=== PATIENT | male | born 1970 | race Caucasian/White ===

== ENCOUNTER 2016-09-03 19:07 | Inpatient (IN) | payer MEDICAID ==
[~2016-09-03] VITALS: Ht 180.3 cm; Wt 107.2 kg
[2016-09-03 20:10] LABS: BASOPHIL % 0.4 % (0-2); PLATELET COUNT 225 x10^3mcL (130-400); RED CELL DISTRIBUTION WIDTH 13.5 % (11.5-14.5)
[2016-09-03 20:34] LABS: CALCIUM 9.3 mg/dL (8.5-10.1); CARBON DIOXIDE 26.6 mmol/L (21-32); CHLORIDE SERUM 105 mmol/L (98-107); CREATININE SERUM 1.1 mg/dL (0.7-1.3); GFR1 > 60 mL/min; GLUCOSE SERUM 108 mg/dL (74-106); POTASSIUM SERUM 4.1 mmol/L (3.5-5.1); SODIUM SERUM 143 mmol/L (136-145)
[2016-09-03 20:38] LABS: ALBUMIN 4.1 g/dL (3.4-5.0); ALKALINE PHOSPHATASE 68 U/L (46-116); ALT/SGPT 66 U/L (16-63); AST/SGOT 27 U/L (15-37); BILIRUBIN TOTAL 0.43 mg/dL (0.20-1.00); MAGNESIUM 2.2 mg/dL (1.8-2.4); TOTAL PROTEIN, SERUM 7.3 g/dL (6.4-8.2)
[2016-09-03] MEDS ORDERED: TRAMADOL HCL50 MG PO (22:45)
[2016-09-03 23:09] VITALS: BP 153/101
[2016-09-03 23:14] VITALS: Ht 180.3 cm; Wt 107.2 kg
[2016-09-03 23:28] LABS: T3 TOTAL 1.22 ng/mL
[2016-09-03 23:31] LABS: AMYLASE 32 U/L (25-115); HDL CHOLESTEROL 53 mg/dL (40-60); LIPASE 103 IU/L (73-393); PHOSPHOROUS 2.6 mg/dL (2.5-4.9); TRIGLYCERIDES 196 mg/dL (<150)
[2016-09-03 23:34] LABS: CHOLESTEROL 204 mg/dL (<200); CHOLESTEROL/HDL RATIO 3.8
[2016-09-03 23:43] LABS: FREE T4 1.01 ng/dL (0.76-1.46); FREE THYROXINE INDEX 2.8 ug/dL (1.4-4.5); T4(THYROXINE) 8.7 ug/dL (4.7-13.3)
[2016-09-04 00:53] LABS: UA SPECIFIC GRAVITY >=1.030 (1.005-1.035); microscopic required? YES; urine erythrocyte NEGATIVE (NEGATIVE)
[2016-09-04 01:06] LABS: AMPHETAMINE QUAL UR NONE DETECTED (NEG <=1000)
[2016-09-04 06:28] LABS: CALCIUM 8.3 mg/dL (8.5-10.1); CARBON DIOXIDE 28.5 mmol/L (21-32); CHLORIDE SERUM 107 mmol/L (98-107); GFR1 > 60 mL/min; GLUCOSE SERUM 100 mg/dL (74-106); POTASSIUM SERUM 3.9 mmol/L (3.5-5.1); SODIUM SERUM 144 mmol/L (136-145)
[2016-09-04 06:43] VITALS: BP 115/71
[2016-09-04 06:44] LABS: BASOPHIL % 0.2 % (0-2); PLATELET COUNT 198 x10^3mcL (130-400); RED CELL DISTRIBUTION WIDTH 13.7 % (11.5-14.5)
[2016-09-04 09:38] VITALS: BP 129/84
[2016-09-04 13:44] VITALS: BP 131/82
[2016-09-04 17:47] VITALS: BP 128/82
[2016-09-04 20:02] VITALS: BP 138/72
[2016-09-04 21:20] VITALS: BP 147/68
[2016-09-05 05:57] VITALS: BP 146/84
[2016-09-05 06:55] LABS: BASOPHIL % 0.2 % (0-2); PLATELET COUNT 184 x10^3mcL (130-400); RED CELL DISTRIBUTION WIDTH 13.4 % (11.5-14.5)
[2016-09-05 06:59] LABS: CALCIUM 8.4 mg/dL (8.5-10.1); CARBON DIOXIDE 28.5 mmol/L (21-32); CHLORIDE SERUM 110 mmol/L (98-107); CREATININE SERUM 0.8 mg/dL (0.7-1.3); GFR1 > 60 mL/min; GLUCOSE SERUM 110 mg/dL (74-106); MAGNESIUM 2.1 mg/dL (1.8-2.4); PHOSPHOROUS 2.5 mg/dL (2.5-4.9); POTASSIUM SERUM 4.5 mmol/L (3.5-5.1); SODIUM SERUM 144 mmol/L (136-145)
[2016-09-05 08:54] VITALS: BP 148/93
[2016-09-05] MEDS ORDERED: ROB750 PO ×2 (10:35→11:31)
[2016-09-05] MEDS ORDERED: LIPI20 PO (10:36)
[2016-09-05] MEDS ORDERED: COL100 PO (10:36)
[2016-09-05] MEDS ORDERED: ATIVAN0.5 M1 PO (10:38)
[2016-09-05] MEDS ORDERED: NOR10T PO (10:39)
[2016-09-05] MEDS ORDERED: ZESTRIL5 MG PO (10:54)
[2016-09-05 12:58] VITALS: BP 140/74
[2016-09-05 13:25] VITALS: BP 142/92
== END 2016-09-05 14:51 | disposition home or self-care (01) | DRG 812 ==
LOC: ED 19:07 → DU 22:22
PROVIDERS: Emergency Medicine; ADMIT Family Medicine
DX: T40.4X1A Poisoning by other synthetic narcotics, accidental (unintentional), initial encounter (principal); N17.0 Acute kidney failure with tubular necrosis; G92 Toxic encephalopathy; I67.4 Hypertensive encephalopathy; R56.9 Unspecified convulsions; S01.512A Laceration without foreign body of oral cavity, initial encounter; I10 Essential (primary) hypertension; E78.5 Hyperlipidemia, unspecified; M51.17 Intervertebral disc disorders with radiculopathy, lumbosacral region; G89.29 Other chronic pain; M72.2 Plantar fascial fibromatosis; F17.210 Nicotine dependence, cigarettes, uncomplicated; E66.9 Obesity, unspecified; Z68.33 Body mass index [BMI] 33.0-33.9, adult; W50.3XXA Accidental bite by another person, initial encounter; Y99.0 Civilian activity done for income or pay; Y92.511 Restaurant or cafe as the place of occurrence of the external cause
CPT/HCPCS: 80307; 83880; 84439; G0480; J2060; J2405; J7030; Q0092

== ENCOUNTER 2016-11-07 11:00 | Emergency (ER) | payer MEDICAID ==
[~2016-11-07 11:00] MED LIST: ATIVAN0.5 M1 PO; COL100 PO; LIPI20 PO; NOR10T PO; ROB750 PO; TRAMADOL HCL50 MG PO; ZESTRIL5 MG PO
[2016-11-07 11:49] LABS: BASOPHIL % 0.4 % (0-2); PLATELET COUNT 208 x10^3mcL (130-400); RED CELL DISTRIBUTION WIDTH 13.1 % (11.5-14.5)
[2016-11-07 12:43] LABS: CARBON DIOXIDE 27.4 mmol/L (21-32); CHLORIDE SERUM 106 mmol/L (98-107); CREATININE SERUM 0.9 mg/dL (0.7-1.3); GFR1 > 60 mL/min; GLUCOSE SERUM 152 mg/dL (74-106); POTASSIUM SERUM 3.7 mmol/L (3.5-5.1); SODIUM SERUM 141 mmol/L (136-145)
[2016-11-07 12:48] LABS: ALBUMIN 3.7 g/dL (3.4-5.0); ALKALINE PHOSPHATASE 71 U/L (46-116); ALT/SGPT 64 U/L (16-63); AST/SGOT 27 U/L (15-37); BILIRUBIN TOTAL 0.41 mg/dL (0.20-1.00); TOTAL PROTEIN, SERUM 6.8 g/dL (6.4-8.2)
[2016-11-07 14:37] VITALS: BP 160/86
== END 2016-11-07 16:37 | disposition home or self-care (01) ==
LOC: ED 11:00
PROVIDERS: Emergency Medicine
DX: T40.4X1A Poisoning by other synthetic narcotics, accidental (unintentional), initial encounter (principal); G89.29 Other chronic pain; Y92.89 Other specified places as the place of occurrence of the external cause
CPT/HCPCS: 83880; G0480; J7030

== ENCOUNTER 2020-03-12 03:12 | Emergency (ER) | payer MEDICAID ==
[~2020-03-12] VITALS: Ht 180.3 cm; Wt 108.9 kg
[2020-03-12 03:22] VITALS: Ht 180.3 cm; Wt 108.9 kg
[2020-03-12 05:12] VITALS: BP 135/89
== END 2020-03-12 06:12 | disposition home or self-care (01) ==
LOC: ED 03:12
DX: T40.2X1A Poisoning by other opioids, accidental (unintentional), initial encounter (principal); I10 Essential (primary) hypertension; E11.9 Type 2 diabetes mellitus without complications; G89.29 Other chronic pain; M54.9 Dorsalgia, unspecified; Y92.89 Other specified places as the place of occurrence of the external cause